=== PATIENT | male | born 1985 | race Two or more races ===

== ENCOUNTER 2023-09-01 22:38 | Emergency (ER) | payer OTHER ==
[~2023-09-01] VITALS: Ht 182.9 cm; Wt 68.0 kg
[2023-09-01 22:40] VITALS: PULSE 85; RESP 19; O2SAT 98
[2023-09-01 23:20] LABS: Basophils # (auto) 0.1 10 ^3/uL (0-0.2); Basophils % (auto) 0.6 % (0.0-2.0); Eosinophils # (auto) 0.3 10 ^3/uL (0-0.8); Eosinophils % (auto) 3.9 % (0.0-7.0); Hematocrit 40.3 % (41.0-53.0); Hemoglobin 13.4 g/dL (13.5-17.5); Lymphocytes # (auto) 3.8 10 ^3/uL (0.4-5.4); Lymphocytes % (auto) 41.9 % (10.0-50.0); Mean Corpuscular Hemoglobin 30.5 pg (28.0-32.0); Mean Corpuscular Hgb Conc. 33.2 g/dL (32.0-36.0); Mean Corpuscular Volume 91.8 fL (80.0-100.0); Monocytes # (auto) 0.6 10 ^3/uL (0-1.3); Neutrophils # (auto) 4.2 10 ^3/uL (1.6-8.6); Neutrophils % (auto) 46.6 % (37.0-80.0); Nucleated Red Blood Cells % 0.1 %; Red Blood Cells 4.39 10^6/uL (4.5-5.90); White Blood Cell 9.1 10^3/uL (4.4-10.8)
[2023-09-01] MEDS ORDERED: LORazepam 2MG/ML-1ML VIAL ONE (23:30)
[2023-09-01] MEDS ORDERED: LORazepam 2MG/ML-1ML VIAL IM ONE (23:30)
[2023-09-01 23:37] LABS: Acetaminophen < 2.0 UG/ML (10.0-20.0); Alanine Aminotransferase 16 U/L (7-40); Albumin 4.5 g/dL (3.2-4.8); Alkaline Phosphatase 90 U/L (46-116); Anion Gap 3 (5-15); Aspartate Aminotransferase 11 U/L (13-40); BUN/Creatinine Ratio 7.6 (10.0-20.0); Bilirubin, Total 0.2 mg/dL (0.2-1.0); Blood Alcohol < 3.0 mg/dL (<10); Blood Urea Nitrogen 7 mg/dL (9-23); Calcium 9.1 mg/dL (8.7-10.4); Carbon Dioxide 28 mmol/L (20-30); Chloride 107 mmol/L (98-107); Glucose 94 mg/dL (74-106); Potassium 3.6 mmol/L (3.5-5.1); Sodium 138 mmol/L (136-145); Total Protein 7.5 g/dL (5.7-8.2)
[2023-09-01 23:51] LABS: Salicylate < 3.0 mg/dL (2.8-20.0)
[2023-09-02 07:56] VITALS: PULSE 87; RESP 16; O2SAT 97
[2023-09-02 08:44] LABS: Urine Bacteria NONE SEEN /hpf (None Seen); Urine Blood Negative /uL (Negative); Urine Clarity Clear (Clear); Urine Color Yellow (Yellow); Urine Protein, UAD Negative (Negative); Urine Specific Gravity 1.023 (1.001-1.035); Urine Urobilinogen Normal (Negative); Urine WBC 1 /hpf (0 - 3)
[2023-09-02 08:49] LABS: Amphetamine Screen, Urine Neg (NEGATIVE)
[2023-09-02 08:51] LABS: Barbiturate Scree,Urine Neg (NEGATIVE); Benzodiazephine Screen, Urine Neg (NEGATIVE); Cocaine Screen, Urine Neg (NEGATIVE); Opiate Scree,Urine Neg (NEGATIVE)
[2023-09-02 08:52] LABS: Cannabinoid Screen, Urine Pos (NEGATIVE); Phencyclidine Screen, Urine Neg (NEGATIVE)
[2023-09-02] MEDS: OLANZapine 5 MG TAB PO SCH ×2 (14:24→22:07)
[2023-09-02 19:30] VITALS: PULSE 70; RESP 18; O2SAT 97
[2023-09-02] MEDS ORDERED: HALOPERIDOL LACTATE 5 MG/ML INJ VIAL IM ONE (21:45)
[2023-09-02] MEDS ORDERED: LORazepam 2MG/ML-1ML VIAL IM ONE (21:45)
[2023-09-02] MEDS ORDERED: diphenhdrAMINE HCL 50 MG/1 ML VL IV ONE (21:45)
[2023-09-03] MEDS: OLANZapine 5 MG TAB PO SCH ×2 (06:00→13:58)
[2023-09-03 07:40] VITALS: PULSE 98; RESP 14; O2SAT 98
[2023-09-03 13:45] VITALS: BP 108/45; PULSE 85; RESP 20; TEMP 96.7; O2SAT 98
== END 2023-09-03 14:35 | disposition short-term general hospital (02) ==
LOC: ER 22:38 → EDBD 22:38 → ER 09-03 14:35
DX: R25.1 Tremor, unspecified (principal); F20.9 Schizophrenia, unspecified; Z79.899 Other long term (current) drug therapy
CPT/HCPCS: 36415; 80053; 80307; 80320; 80329; 81001; 85025; 96372; 99285; J2060